=== PATIENT | male | born 1965 | race Caucasian/White ===

== ENCOUNTER 2018-06-23 19:56 | Inpatient (IN) | payer OTHER ==
[~2018-06-23] VITALS: Ht 180.3 cm; Wt 99.8 kg
--- NOTE | ~2018-06-23 | HC ---
[facility] [place] [address] CONSULTATION Name: PEI ANN Room #: 200-I ADM IN .R.#: [id number] Admission: 06/23/18 Attend Phys: Peña Bradford MD Discharge: Date of : 61 Report #: [id number] THIS REPORT FOR: //name// CC: Peña Bradford [facility] physician/PCP DATE OF SERVICE: 06/26/2018 REASON FOR CONSULTATION: Hemoptysis. HISTORY OF PRESENT ILLNESS: The patient is a 53-year-old male who has had hemoptysis recently with uncontrolled hypertension. He said he snorted and had a blood going down the back of his throat and continued to bleed from what appeared to be his nose for a several-minute period. He came to the Emergency Room on 06/23/2018 with hemoptysis and has been admitted for evaluation. He has hypertension and does not take his medication secondary to cost. He denies history of liver, lung, kidney disease. He does smoke cigarettes. PAST MEDICAL HISTORY: Significant for back pain, hemoptysis, hypertension. ALLERGIES: TO PENICILLIN. MEDICATIONS ON ADMISSION: None. REVIEW OF SYSTEMS: Essentially negative at this time. The patient has no complaints, has not had any bleeding since admission. PHYSICAL EXAMINATION: GENERAL: He is a well-developed, well-nourished male in no apparent distress. He is sitting upright in bed with no evidence of active bleeding. HEENT: Head is normocephalic. Pupils are equal, round and reactive to light. Ears: Tympanic membranes are clear. Nasal: He has an area that is suspicious for a site of previous bleeding with a papule present on the left anterior septum. No active bleeding at this time. Oral cavity: No granulation ulceration seen. NECK: No palpable adenopathy. IMPRESSION: Likely hemoptysis from a significant epistaxis with uncontrolled hypertension. PLAN: He will resume his blood pressure medication to keep his blood pressure under control, use Aerogel intranasally as a moisturizing agent. I would like to see him in the office next week and we can cauterize the spot on his anterior left septum, also perform a full mucosal evaluation of the remainder of his aerodigestive tract above his vocal cords to make sure there is no other [address] [address] CONSULTATION Name: EPI ANN Room #: 200-I ADM IN ..#: [id number] Admission: 06/23/18 Attend Phys: Peña Bradford MD Discharge: Date of : 61 Report #: [id number] potential site of bleeding, but this is likely to be his site of bleeding from the upper aerodigestive tract. By: 1347 [id number] Boni Holley MD /nt
[~2018-06-23 19:56] MED LIST: CATAPRES0.2 MG PO; NORCO 5-325 TA1 EACH PO
[2018-06-23 20:45] LABS: ABSOLUTE NEUTROPHILS 6.8 thou/uL (1.4-8.2); BASOPHILS 0.8 % (0.0-2.0); EOSINOPHILS 3.2 % (0.0-3.0); HEMATOCRIT 43.2 % (42.0-52.0); HEMOGLOBIN 15.3 gm/dL (14.0-18.0); LYMPHOCYTES 19.9 % (24.0-44.0); MCH 28.2 pg (26.0-34.0); MCHC 35.3 g/dL (28.0-37.0); MCV 79.8 fL (80.0-100.0); MONOCYTES 6.4 % (1.0-8.0); PLATELET COUNT 290 thou/uL (150-400); POLYS 69.7 % (36.0-66.0); RBC 5.41 mil/uL (4.50-6.00); RDW 15.6 % (10.5-14.5); WBC 9.8 thou/uL (4.0-11.0)
[2018-06-23] MEDS ORDERED: NOHOMEMEDICATIONS (20:49)
[2018-06-23 21:03] LABS: APTT 28.7 Seconds (24.5-32.8); D-DIMER 0.6 ug/mLFEU (0.19-0.50); PROTIME 10.2 Seconds (9.3-11.4)
[2018-06-23 21:04] LABS: BE(vivo) 0.5 mmol/L (-2 to +3); HCO3 24.7 mmol/L (22.0-26.0); PCO2 38.3 mmHg (35.0-45.0); PO2 83.4 mmHg (80.0-100.0); pH 7.427 (7.360-7.450); sO2 96.5 % (92.0-98.0)
[2018-06-23 21:17] LABS: ALBUMIN 3.4 g/dL (3.4-5.0); ANION GAP 7 mmol/L (7-16); BUN 24 mg/dL (7-18); CALCIUM 8.8 mg/dL (8.5-10.1); CHLORIDE 102 mmol/L (98-107); CO2 30 mmol/L (21-32); CREATININE 1.7 mg/dL (0.7-1.3); DIRECT BILIRUBIN < 0.1 mg/dL (<0.1-0.3); GLUCOSE 202 mg/dL (74-106); POTASSIUM 3.5 mmol/L (3.5-5.1); SGOT 22 U/L (15-37); SGPT 29 U/L (30-65); SODIUM 139 mmol/L (136-145); TOTAL BILIRUBIN 0.2 mg/dL (<0.1-1.0); TOTAL PROTEIN 6.6 g/dL (6.4-8.2); TROPONIN-I <0.06 ng/mL (<0.06)
[2018-06-24] VITALS (11 sets, daily range): BP systolic 128–167; BP diastolic 68–92
[2018-06-24 03:54] LABS: HEMATOCRIT 42.6 % (42.0-52.0); HEMOGLOBIN 14.2 gm/dL (14.0-18.0)
[2018-06-24 04:10] LABS: CHOLESTEROL 177 mg/dL (<200); HDL CHOLESTEROL 33 mg/dL (>40); LDL CHOLESTEROL 122 mg/dL (<100); TC:HDL 5.4 Ratio (Not establshd); TRIGLYCERIDE 112 mg/dL (<150); VLDL 22 mg/dL (<40)
[2018-06-24 04:41] LABS: SERUM ASSESSMENT Clear
--- NOTE | 2018-06-24 07:39 | NUR ---
PT CAME FROM ER AT APPROX 0150. PT WAS A&0X4, VSS EXCEPT BP WHICH WAS IN 160s. CARDENE DRIP TITRATED UP TO 12.5MG/HR AT 0250, BP CAME DOWN TO 150S, CARDENE DRIP TIRATED DOWN TO 10MG/HR AROUNF 0500. PT IS STABLE, NO MORE REPORTS OF HEMOPTYSIS. ADMISSION ASSESSMENTS AND TELE STRIP DONE. PT IS RESTING IN BED, HAS BEEN NPO SINCE ARRIVAL. WILL CONTINUE TO MONITOR PER POC.
--- NOTE | 2018-06-24 07:50 | NUR ---
ASSESS PT AT 0730 THIS AM. PT HAVIN SHALLOW BREATHING AND HEART ACCELERATING TO 200'S THE AYSTOLE. TALK TO SON ABOUT FAMILY WHISES AND HE REAFFIRMED THAT PT IS A DNR AND TO ALLOW PT TO COMFORTABLY. PT AT [address] YOUNG INFORMED. WILL CALL [facility].
--- NOTE | 2018-06-24 09:47 | NUR ---
PT OFF CARDENE GTT AT THIS TIME NOW ON PO HTN MEDS.
[2018-06-24 09:48] LABS: CALCIUM 8.6 mg/dL (8.5-10.1); CREATININE 1.3 mg/dL (0.7-1.3); POTASSIUM 3.1 mmol/L (3.5-5.1)
--- NOTE | 2018-06-24 10:09 | EKG ---
[place] 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 : 1965 Requested By: Cesar Wahl Order Number: [id number] MD: Sang Underwood Measurements Intervals [place] Rate: 71 P: 58 WA: 114 QRS: 54 QRSD: 95 T: 187 QT: 364 QTc: 396 Interpretive Statements Sinus rhythm Borderline short WA interval Repol abnrm suggests ischemia, lateral leads Compared to ECG 02/04/2009 20:24:44 ST and T wave abnormality is now present Electronically Signed On 06-24-2018 10:09:31 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
[2018-06-24 10:55] LABS: ABSOLUTE NEUTROPHILS 7.2 thou/uL (1.4-8.2); EOSINOPHILS 3.2 % (0.0-3.0); HEMATOCRIT 40.7 % (42.0-52.0); HEMOGLOBIN 13.2 gm/dL (14.0-18.0); LYMPHOCYTES 16.9 % (24.0-44.0); MCH 26.3 pg (26.0-34.0); MCHC 32.5 g/dL (28.0-37.0); MCV 80.9 fL (80.0-100.0); MONOCYTES 8.9 % (1.0-8.0); PLATELET COUNT 258 thou/uL (150-400); RBC 5.02 mil/uL (4.50-6.00); RDW 15.9 % (10.5-14.5); WBC 10.3 thou/uL (4.0-11.0)
--- NOTE | 2018-06-24 22:28 | NUR ---
PT IS ALERT AND ORIENTED X 4. STATES THAT HE CAME IN THE HOSPITAL BECAUSE HE WAS VOMITING LARGE AMOUNTS OF BLOOD. THE PATIENT STATES THAT SINCE HIS BLOOD PRESSURE HAS DECREASED, HE IS FEELING A LOT BETTER. THE PATIENT ALSO STATED THAT HE KNOW THAT HE NEEDS TO STOP SMOKING. HE NOTED THAT HE HAD TRIED CHANTEX IN THE PAST, BUT HE HAD A BAD REACTION TO IT. THE PATIENT ALSO STATES THAT HE STOPPED TAKING HIS BLOOD PRESSURE MEDICATION ABOUT A YEAR AGO BECAUSE HE COULD NOT AFFORD IT. THE PATIENT STATES THAT HE KNOWS THAT HE NEEDS TO TAKE THE MEDICATION AND SAYS THAT HE JUST NEEDS TO BE PRESCRIBED SOMETHING THAT IS LESS EXPENSIVE. THE PATIENT VOICES UNDERSTANDING THAT HE WILL BE NPO AT MIDNIGHT. WILL CONTINUE TO MONITOR.
[2018-06-25] VITALS (10 sets, daily range): BP systolic 163–201; BP diastolic 89–115
[2018-06-25 03:08] LABS: GLYCOHEMOGLOBIN (HGB A1C) 6.3 % (4.8-5.6)
[2018-06-25 04:23] LABS: HEMOGLOBIN 13.5 gm/dL (14.0-18.0)
--- NOTE | 2018-06-25 18:21 | HC ---
[facility] [place] [place] [address] CONSULTATION Name: EPI ANN Room #: 200-I ADM IN .R.#: [id number] Admission: 06/23/18 Attend Phys: Peña Bradford MD Discharge: Date of : 61 Report #: [id number] THIS REPORT FOR: //name// CC: Peña Bradford MD [facility] physician/PCP DATE OF SERVICE: 06/25/2018 He is a patient of Dr. Peña Bradford. He has no primary physician. CHIEF COMPLAINT AND HISTORY OF PRESENT ILLNESS: This is a very pleasant 53-year-old white male who presented via ambulance to the Emergency Room with a chief complaint of hemoptysis of a large amount of bright red blood. The patient states that he has had sudden onset of coughing and this led to the bright red blood that he felt he was coughing. I asked him if he had ever had nosebleeds and he said he has not, but in the ambulance right here, he noticed that blood kept pooling in the back of his throat and he was trying to swallow it and may have aspirated some blood at that time. The patient does complain of some dysphagia intermittently to pasta and rice primarily. Ordinarily pasta and rice would not cause significant dysphagia in most people and it may be that he has an esophageal motility disorder. PAST MEDICAL HISTORY: Significant for hypertension that has been basically uncontrolled. He takes no medications for his blood pressure. He has been told he is a type 2 diabetic, but he has never been treated for it. PAST SURGICAL HISTORY: Significant for cholecystectomy and an umbilical hernia repair. He has also had L5-S1 disk surgery. ALLERGIES: TO PENICILLIN AND CODEINE. MEDICATIONS PRIOR TO ADMISSION: None. SOCIAL HISTORY: He smokes 1/2 pack of cigarettes per day. He quit drinking alcohol 2 years ago, but drank heavily prior to that, he does smoke marijuana. FAMILY HISTORY: Significant for rectal cancer in his father. There is no history of Crohn's disease or ulcerative colitis in the family. The patient himself has never had a colonoscopy. REVIEW OF SYSTEMS: He admits to dysphagia to pasta and rice as described. He denies any odynophagia. He does have gastroesophageal reflux and he takes baking soda for that. He denies any history of hiatal hernia or peptic ulcer disease. He says his weight has been stable. His appetite has been good. He denies any nausea or vomiting. Denies any diarrhea or constipation. He denies [facility] [address] [place] [address] CONSULTATION Name: EPI ANN Room #: 200-I ADM IN [facility]#: [id number] Admission: 06/23/18 Attend Phys: Peña Bradford MD Discharge: Date of : 61 Report #: [id number] any melena or hematochezia until this past week when he had some bright red stool per rectum x 1. When I pressed him further about this, he said that has been happening intermittently for about the past 1 year. He denies any jaundice, hepatitis or pancreatitis. He has had cholecystectomy. Denies any abdominal pain. Denies diarrhea and constipation, nausea and vomiting and his weight is stable and appetite has been good. PHYSICAL EXAMINATION: GENERAL: Reveals a well-developed, slightly obese 53-year-old white male in no obvious distress at the time of the examination. He is awake, alert, oriented x 4 and cooperative and very pleasant to converse with. HEENT: He is normocephalic, atraumatic and anicteric. HEART: Rate and rhythm are regular. LUNGS: Clear bilaterally. ABDOMEN: Soft. Bowel sounds are present in all 4 quadrants. There is no palpable organomegaly or mass. There is no tenderness, rebound or guarding. EXTREMITIES: Warm and dry. No peripheral cyanosis or clubbing. Pt has numerous oozing sores on his lower extremities. NEUROLOGIC: He appears grossly intact but without lateralizing signs, although I did not test him extensively neurologically. IMPRESSION: 1. Hemoptysis, suspected. 2. Epistaxis, suspected as the patient noted the blood was pooling in the back of his throat on the ambulance ride to the hospital. 3. Uncontrolled hypertension. The patient does not take any medications on a regular basis. 4. Intermittent bouts of hematochezia that has been painless. This has been going on for a year. He has never had a colonoscopy. 5. Family history of rectal cancer in his father. 6. Gastroesophageal reflux. 7. Dysphagia to pasta and rice probably an esophageal motility problem. 8. The patient was told in the past he has type 2 diabetes, but he is not on any treatment for it. 9. The patient used to drink alcohol regularly, but quit 2 years ago. He does smoke marijuana regularly and he smokes cigarettes a half pack per day. 10. The patient has had a cholecystectomy and an umbilical hernia repair and L5-S1 disk repair. RECOMMENDATIONS: We will keep him n.p.o., obtain consent for an EGD now. We will schedule EGD for today. We will recheck his H and H every 6 hours. He may need an Ear, Nose and Throat consult if an EGD is negative. [address] [address] CONSULTATION Name: EPI ANN Room #: 200-I ADM IN M.R.#: [id number] Admission: 06/23/18 Attend Phys: Peña Bradford MD Discharge: Date of : 61 Report #: [id number] Thank you for allowing me to participate in his care. <ELECTRONICALLY SIGNED> By: Chandrika Oliver DO 06/25/18 182 [id number] 1311 Chandrika Oliver DO /nt
--- NOTE | 2018-06-25 19:17 | NUR ---
ASSUMED PATIENT CARE THIS AM. PATIENT LYING IN BED, A&O. PATIENT OFF UNIT TO BRONCH AND UPPER GI THIS SHIFT. NO COMPLAINTS STATED. ELEVATED BLOOD PRESSURE, PROVIDER AWARE, CHANGE IN MEDICATIONS. UP AD KONRAD, PATIENT AMBULATING AROUND UNIT THIS AFTERNOON. TOLERATING DIET.
[2018-06-26 02:56] LABS: HEMATOCRIT 38.3 % (42.0-52.0); HEMOGLOBIN 12.4 gm/dL (14.0-18.0)
[2018-06-26 04:31] VITALS: BP 154/88
--- NOTE | 2018-06-26 05:36 | NUR ---
PT. BP REMAINS HIGH DURING THE NIGHT; AROUND MIDNIGHT PT. VOMITED BRIGHT RED EMESIS; PHYSICIAN CONTACTED, MEDICATION GIVEN PER ORDER; ASSESSMENT CHARGED; ABLE TO REST AFTER MIDNIGHT. DECREASED BP DURING THE MORNING.
[2018-06-26 07:10] VITALS: BP 156/80
[2018-06-26] MEDS ORDERED: PREDNISONE 20 M20 M1 PO (10:05)
[2018-06-26] MEDS ORDERED: LOPRESSOR50 PO (10:05)
[2018-06-26 11:10] VITALS: BP 171/92
[2018-06-26 14:40] VITALS: BP 174/89
--- NOTE | 2018-06-26 15:24 | NUR ---
ASSUMED PATIENT CARE THIS AM. PATIENT LYING IN BED, A&O. ROOM AIR. UP AD KONRAD. NO N/V, N/T OR PAIN STATED FOR THIS RN. TOLERATING DIET. PLAN TO DISCHARGE HOME PER DR. MAZARIEGOS, FOLLOW UP WITH DR. COTTO.
[2018-06-26 15:40] VITALS: BP 171/92
[2018-06-28 03:07] LABS: ADENOVIRUS Negative (Negative); INFLUENZA A Negative (Negative); INFLUENZA B Negative (Negative); METAPNEUMOVIRUS Negative (Negative); PARAINFLUENZA 1 Negative (Negative); PARAINFLUENZA 2 Negative (Negative); PARAINFLUENZA 3 Negative (Negative); RHINOVIRUS Negative (Negative); RSV A Negative (Negative); RSV B Negative (Negative)
== END 2018-06-26 17:19 | disposition home or self-care (01) | DRG 193 ==
LOC: ER 19:56 → EROBS 22:07 → 2N 22:07 → ENTRNSPT 06-25 15:37 → EDTRNSPTSTS 06-25 15:39 → DELTRNSPT 06-25 15:45 → 2N 06-26 17:19
PROVIDERS: Emergency Medicine; Nurse Practitioner Acute Care; Pediatrics; ADMIT Hospitalist
PROC: 0B9F8ZX Drainage of Right Lower Lung Lobe, Via Natural or Artificial Opening Endoscopic, Diagnostic (ICD-10-PCS; principal; 2018-06-25)
PROC: 0DJ08ZZ Inspection of Upper Intestinal Tract, Via Natural or Artificial Opening Endoscopic (ICD-10-PCS; principal; 2018-06-25)
DX: J18.9 Pneumonia, unspecified organism (principal); J96.01 Acute respiratory failure with hypoxia; R04.2 Hemoptysis; K92.1 Melena; N17.9 Acute kidney failure, unspecified; K21.9 Gastro-esophageal reflux disease without esophagitis; I10 Essential (primary) hypertension; F17.210 Nicotine dependence, cigarettes, uncomplicated; R04.0 Epistaxis; R13.10 Dysphagia, unspecified; F12.90 Cannabis use, unspecified, uncomplicated; I16.0 Hypertensive urgency; E11.65 Type 2 diabetes mellitus with hyperglycemia; D64.9 Anemia, unspecified; R91.1 Solitary pulmonary nodule; Z86.73 Personal history of transient ischemic attack (TIA), and cerebral infarction without residual deficits; Z90.49 Acquired absence of other specified parts of digestive tract; Z88.0 Allergy status to penicillin; Z88.6 Allergy status to analgesic agent; Z80.8 Family history of malignant neoplasm of other organs or systems; Z83.3 Family history of diabetes mellitus; Z23 Encounter for immunization
CPT/HCPCS: 10081; 50010; 62110; 62900; 70005

== ENCOUNTER 2018-11-05 22:27 | Emergency (ER) | payer OTHER ==
[~2018-11-05] VITALS: Ht 190.5 cm; Wt 104.3 kg
[~2018-11-05 22:27] MED LIST changes: +LOPRESSOR50 PO; +NOHOMEMEDICATIONS; +PREDNISONE 20 M20 M1 PO
[2018-11-05 23:23] LABS: ABSOLUTE NEUTROPHILS 5.3 thou/uL (1.4-8.2); BASOPHILS 0.9 % (0.0-2.0); EOSINOPHILS 4.8 % (0.0-3.0); HEMATOCRIT 35.4 % (42.0-52.0); HEMOGLOBIN 11.7 gm/dL (14.0-18.0); LYMPHOCYTES 23.1 % (24.0-44.0); MCH 26.1 pg (26.0-34.0); MCHC 33.2 g/dL (28.0-37.0); MCV 78.7 fL (80.0-100.0); MONOCYTES 10.3 % (1.0-8.0); PLATELET COUNT 229 thou/uL (150-400); POLYS 60.9 % (36.0-66.0); RDW 15.1 % (10.5-14.5); WBC 8.7 thou/uL (4.0-11.0)
[2018-11-05 23:27] LABS: ANION GAP 6 mmol/L (7-16); BUN 27 mg/dL (7-18); CALCIUM 9.6 mg/dL (8.5-10.1); CHLORIDE 103 mmol/L (98-107); CO2 33 mmol/L (21-32); CREATININE 1.7 mg/dL (0.7-1.3); GLUCOSE 137 mg/dL (74-106); POTASSIUM 3.5 mmol/L (3.5-5.1); SODIUM 142 mmol/L (136-145)
[2018-11-05 23:36] LABS: TROPONIN-I <0.06 ng/mL (<0.06)
[2018-11-06 02:37] VITALS: BP 186/96
--- NOTE | 2018-11-06 16:58 | EKG ---
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1965 Requested By: Anastasia Sam Order Number: [id number] MD: Eric Bai Measurements Intervals [place] Rate: 66 P: 45 OR: 125 QRS: 39 QRSD: 101 T: 149 QT: 433 QTc: 454 Interpretive Statements Sinus rhythm Probable left atrial enlargement Borderline ST elevation, anterior leads Baseline wander in lead(s) V1 Compared to ECG 06/23/2018 20:42:29 Electronically Signed On 11-06-2018 16:58:34 CDT by Eric Bai [email or web address] ��������������������������������������������� <ELECTRONICALLY SIGNED> ���������������������������������������� By: Eric Bai MD ��������������������������������������������� 11/06/18 1658 36 36 Eric Bai MD /LILY
== END 2018-11-06 02:50 | disposition home or self-care (01) ==
LOC: ER 22:27
PROVIDERS: Emergency Medicine
DX: R07.89 Other chest pain (principal); I10 Essential (primary) hypertension; K21.9 Gastro-esophageal reflux disease without esophagitis; F17.210 Nicotine dependence, cigarettes, uncomplicated; Z86.73 Personal history of transient ischemic attack (TIA), and cerebral infarction without residual deficits; Z90.49 Acquired absence of other specified parts of digestive tract